=== PATIENT | female | born 1955 | race Caucasian/White ===

== ENCOUNTER 2017-04-03 15:47 | Emergency (ER) | payer OTHER ==
[~2017-04-03] VITALS: Ht 165.1 cm; Wt 61.2 kg
[2017-04-04 17:48] LABS: HCV Non Reactive (NR)
[2018-02-04] MEDS ORDERED: BP MED (19:18)
[2018-02-04] MEDS ORDERED: Mobic15 MG PO (19:19)
[2018-02-04] MEDS ORDERED: ESTRADIOL (19:19)
[2018-02-04] MEDS ORDERED: LOSARTAN POTAS100 MG PO (19:19)
== END 2017-04-03 17:00 | disposition home or self-care (01) ==
LOC: ER 15:47
PROVIDERS: Physician Assistant
DX: S61.230A Puncture wound without foreign body of right index finger without damage to nail, initial encounter (principal); I10 Essential (primary) hypertension; W46.0XXA Contact with hypodermic needle, initial encounter
CPT/HCPCS: 36415; 84460; 86706; 86803; 87389; 99283

== ENCOUNTER 2018-03-07 21:07 | Emergency (ER) | payer OTHER, BC ==
[~2018-03-07] VITALS: Ht 167.6 cm; Wt 61.2 kg
[~2018-03-07 21:07] MED LIST: BP MED; ESTRADIOL; LOSARTAN POTAS100 MG PO; Mobic15 MG PO
== END 2018-03-07 21:56 | disposition home or self-care (01) ==
LOC: ER 21:07
DX: S00.83XA Contusion of other part of head, initial encounter (principal); I10 Essential (primary) hypertension; W22.8XXA Striking against or struck by other objects, initial encounter
CPT/HCPCS: 99283

== ENCOUNTER → 2018-08-10 | Outpatient (CLI) | payer BC ==
[2018-08-10 09:31] LABS: BASOPHILS ABSOLUTE AUTO 0.02 K/mm3 (0.00-0.23); BASOPHILS PERCENT AUTO 1 % (0-2); EOSINOPHILS ABSOLUTE AUTO 0.13 K/mm3 (0.00-0.68); EOSINOPHILS PERCENT AUTO 3 % (0-6); Hematocrit 37.9 % (33.0-51.0); Hemoglobin 12.9 g/dL (11.5-16.0); IMMATURE GRAN ABSOLUTE AUTO 0.01 K/mm3 (0.00-0.10); IMMATURE GRAN PERCENT AUTO 0 % (0-1); LYMPHOCYTES PERCENT AUTO 34 % (21-46); MONOCYTES ABSOLUTE AUTO 0.37 K/mm3 (0.16-1.47); MONOCYTES PERCENT AUTO 10 % (4-13); Mean Corpuscular HGB 30.1 pg (26.0-34.0); Mean Corpuscular Volume 89 fL (80-100); NEUTROPHILS ABSOLUTE AUTO 2.02 K/mm3 (1.96-9.15); NEUTROPHILS PERCENT AUTO 52 % (41-73); Platelet Count 226 K/mm3 (150-400); RDW Coefficient Variation 13.3 % (11.7-14.2); RDW Standard Deviation 43.1 fL (35.1-46.3); Red Blood Cell Count 4.28 M/mm3 (3.80-5.20); White Blood Cell Count 3.85 K/mm3 (4.00-11.30)
[2018-08-10 09:43] LABS: Alanine Aminotransfer (ALT/SGP 33 U/L (12-78); Albumin/Globulin Ratio 1.3 (0.8-1.8); Alk Phos 59 U/L (40-126); Anion Gap 13 mmol/L (6-16); Aspartate Aminotrans (AST/SGOT 20 U/L (12-37); Bilirubin, Total 1.1 mg/dL (0.1-1.0); Blood Urea Nitrogen 14 mg/dL (8-24); Bun/Creatinine Ratio 24.1 (12.0-20.0); CO2, Blood 25 mmol/L (21-32); Calcium, Blood 9.5 mg/dL (8.5-10.1); Chloride, Blood 102 mmol/L (98-108); Creatinine, Blood 0.58 mg/dL (0.40-1.00); Globulin, Blood 3.2 g/dL (2.2-4.0); Glomerular Filtration Rate >60 (60-); Glucose, Blood 103 mg/dL (70-99); Potassium, Blood 3.4 mmol/L (3.5-5.5); Sodium, Blood 140 mmol/L (136-145); Total Protein, Blood 7.2 g/dL (6.4-8.2)
== END | disposition home or self-care (01) ==
LOC: LAB SHORT 09:27 → LAB EV 09:27
PROVIDERS: Family Medicine
DX: K51.90 Ulcerative colitis, unspecified, without complications (principal); R19.7 Diarrhea, unspecified
CPT/HCPCS: 80053; 85025; 86140

== ENCOUNTER → 2018-12-23 | Outpatient (CLI) | payer BC ==
[2018-12-25 15:07] LABS: HPV 16 Negative (Negative); HPV 18 Negative (Negative); HPV OTHER HR TYPES Negative (Negative)
== END | disposition home or self-care (01) ==
LOC: LAB 18:50 → LAB SHORT 18:50
PROVIDERS: Obstetrics & Gynecology Gynecology
DX: Z12.4 Encounter for screening for malignant neoplasm of cervix (principal)
CPT/HCPCS: 87624; G0123

== ENCOUNTER → 2019-02-11 | Outpatient (CLI) | payer BC | LOC: PLD 08:15 → LAB SHORT 08:15 | DX: L72.9 Follicular cyst of the skin and subcutaneous tissue, unspecified (principal) | CPT/HCPCS: 88304 ==

== ENCOUNTER → 2024-03-17 | Outpatient (CLI) | payer OTHER ==
[2024-03-17 11:03] LABS: BASOPHILS ABSOLUTE AUTO 0.09 K/mm3 (0.00-0.23); BASOPHILS PERCENT AUTO 1 % (0-2); EOSINOPHILS ABSOLUTE AUTO 0.32 K/mm3 (0.00-0.68); EOSINOPHILS PERCENT AUTO 3 % (0-6); Hematocrit 27.6 % (33.0-51.0); Hemoglobin 8.6 g/dL (11.5-16.0); IMMATURE GRAN ABSOLUTE AUTO 0.12 K/mm3 (0.00-0.10); IMMATURE GRAN PERCENT AUTO 1 % (0-1); LYMPHOCYTES ABSOLUTE AUTO 0.39 K/mm3 (0.84-5.20); LYMPHOCYTES PERCENT AUTO 4 % (21-46); MONOCYTES ABSOLUTE AUTO 0.57 K/mm3 (0.16-1.47); MONOCYTES PERCENT AUTO 5 % (4-13); Mean Corpuscular HGB 30.7 pg (26.0-34.0); Mean Corpuscular HGB Conc 31.2 g/dL (31.5-36.5); Mean Corpuscular Volume 99 fL (80-100); Mean Platelet Volume 9.9 fL (9.1-12.4); NEUTROPHILS ABSOLUTE AUTO 9.45 K/mm3 (1.96-9.15); NEUTROPHILS PERCENT AUTO 86 % (41-73); Platelet Count 353 K/mm3 (150-400); RDW Coefficient Variation 23.4 % (11.7-14.2); White Blood Cell Count 10.94 K/mm3 (4.00-11.30)
== END ==
LOC: LAB 10:00 → LAB SHORT 10:00
PROVIDERS: Internal Medicine Hematology & Oncology
DX: C20 Malignant neoplasm of rectum (principal)
CPT/HCPCS: 85025

== ENCOUNTER → 2024-04-05 | Outpatient (CLI) | payer OTHER ==
[2024-04-05 10:19] LABS: Hematocrit 25.4 % (33.0-51.0); Hemoglobin 8.1 g/dL (11.5-16.0); Mean Corpuscular HGB 32.1 pg (26.0-34.0); Mean Corpuscular HGB Conc 31.9 g/dL (31.5-36.5); Mean Corpuscular Volume 101 fL (80-100); Mean Platelet Volume 10.3 fL (9.1-12.4); NRBC ABSOLUTE 0.15 K/mm3 (0.00-0.02); NRBC Auto 0.5 /100 WBC (0.0-0.2); Platelet Count 676 K/mm3 (150-400); RDW Standard Deviation 88.4 fL (35.1-46.3); Red Blood Cell Count 2.52 M/mm3 (3.80-5.20); White Blood Cell Count 27.39 K/mm3 (4.00-11.30)
[2024-04-05 10:38] LABS: BASOPHILS PERCENT MAN 0 % (0-2); EOSINOPHILS PERCENT MAN 0 % (0-6); LYMPHOCYTES ABSOLUTE MAN 2.19 K/mm3 (0.84-5.20); LYMPHOCYTES PERCENT MAN 8 % (21-46); METAMYELOCYTE ABSOLUTE MAN 2.46 K/mm3 (0.00-0.00); METAMYELOCYTE PERCENT MAN 9 % (0-0); MONOCYTES ABSOLUTE MAN 3.01 K/mm3 (0.16-1.47); MONOCYTES PERCENT MAN 11 % (4-13); NEUTROPHILS ABSOLUTE MAN 19.72 K/mm3 (1.96-9.15); SEG NEUTROPHILS PERCENT MAN 72 % (41-73); TOTAL CELLS COUNTED 100
== END | disposition home or self-care (01) ==
LOC: LAB SHORT 09:30 → LAB 09:30
PROVIDERS: Internal Medicine Hematology & Oncology
DX: C20 Malignant neoplasm of rectum (principal)
CPT/HCPCS: 85025

== ENCOUNTER 2024-04-26 16:44 | Inpatient (IN) | payer OTHER ==
[~2024-04-26] VITALS: Ht 167.6 cm; Wt 51.5 kg
[2024-04-26 17:36] LABS: Hemoglobin 7.2 g/dL (11.5-16.0); Mean Corpuscular HGB 32.7 pg (26.0-34.0); Mean Corpuscular HGB Conc 31.3 g/dL (31.5-36.5); Mean Corpuscular Volume 105 fL (80-100); Mean Platelet Volume 9.9 fL (9.1-12.4); NRBC ABSOLUTE 0.51 K/mm3 (0.00-0.02); Platelet Count 693 K/mm3 (150-400); RDW Coefficient Variation 23.2 % (11.7-14.2); RDW Standard Deviation 87.1 fL (35.1-46.3); White Blood Cell Count 49.89 K/mm3 (4.00-11.30)
[2024-04-26 17:58] LABS: BAND PERCENT MAN 7 % (0-8); BASOPHILS ABSOLUTE MAN 0.49 K/mm3 (0.00-0.23); BASOPHILS PERCENT MAN 1 % (0-2); EOSINOPHILS PERCENT MAN 0 % (0-6); LYMPHOCYTES ABSOLUTE MAN 1.99 K/mm3 (0.84-5.20); LYMPHOCYTES PERCENT MAN 4 % (21-46); METAMYELOCYTE ABSOLUTE MAN 1.99 K/mm3 (0.00-0.00); METAMYELOCYTE PERCENT MAN 4 % (0-0); MONOCYTES ABSOLUTE MAN 1.99 K/mm3 (0.16-1.47); MONOCYTES PERCENT MAN 4 % (4-13); MYELOCYTE ABSOLUTE MAN 0.49 K/mm3 (0.00-0.00); MYELOCYTE PERCENT MAN 1 % (0-0); SEG NEUTROPHILS PERCENT MAN 79 % (41-73); TOTAL CELLS COUNTED 100
[2024-04-26 18:07] LABS: Albumin, Blood 3.1 g/dL (3.4-5.0); Albumin/Globulin Ratio 0.9 (0.8-1.8); Bilirubin, Total 0.4 mg/dL (0.1-1.0); Calcium, Blood 9.3 mg/dL (8.5-10.1); Creatinine, Blood 0.91 mg/dL (0.40-1.00); Globulin, Blood 3.5 g/dL (2.2-4.0); Potassium, Blood 4.5 mmol/L (3.5-5.5); Total Protein, Blood 6.6 g/dL (6.4-8.2)
[2024-04-26 22:33] LABS: Source, Urine Clean Catch
[2024-04-26 22:39] LABS: Appearance, Urine Clear (Clear); Bilirubin, Urine Neg (Neg); Blood, Urine 5+ (Neg); Color, Urine Yellow (P-Yellow); Glucose Qualitative, Urine Neg (Neg); Ketones, Urine Neg (Neg); Leukocyte Esterase, Urine 1+ (Neg); Nitrite, Urine Neg (Neg); Protein, Urine 2+ (Neg); Specific Gravity, Urine 1.015 (1.003-1.022); Urobilinogen, Urine NORM (Normal)
[2024-04-26] MEDS ORDERED: Ondansetron HCl 2 MG / ML 2ML Vial IV ONE (22:45)
[2024-04-26] MEDS ORDERED: HYDROmorphone HCl/Pf 1MG SYR IV ONE (22:45)
[2024-04-26 22:46] LABS: Bacteria Many /hpf; Squamous Epithelial Cells Few /hpf (Few)
[2024-04-26 22:47] LABS: Amorphous Light (0-Heavy); Calcium Oxalate Crystals Mod /hpf; Renal Epithelial Rare /hpf (0-Rare)
[2024-04-26] MEDS ORDERED: CefTRIAXone Sodium 1,000 MG in NS 100 ML IV ONE (23:35)
[2024-04-27 00:49] LABS: Hematocrit 20.8 % (33.0-51.0); Hemoglobin 6.7 g/dL (11.5-16.0)
[2024-04-27] MEDS ORDERED: HYDROmorphone HCl/Pf 1MG SYR IV PRN (01:30)
[2024-04-27] MEDS ORDERED: Ondansetron HCl 2 MG / ML 2ML Vial IV PRN (01:30)
[2024-04-27] MEDS ORDERED: Bisacodyl 10 MG Supp PR PRN (01:30)
[2024-04-27] MEDS ORDERED: Magnesium Hydroxide Conc 10 ML UDC PO PRN (01:30)
[2024-04-27] MEDS ORDERED: FLU VACC TS2024-25(6MOS UP)/PF 45 MCG/0.5 ML SYRINGE IM ONE (01:30)
[2024-04-27 05:28] LABS: Hematocrit 21.5 % (33.0-51.0); Hemoglobin 6.9 g/dL (11.5-16.0); Mean Corpuscular HGB 32.7 pg (26.0-34.0); Mean Corpuscular HGB Conc 32.1 g/dL (31.5-36.5); Mean Corpuscular Volume 102 fL (80-100); Mean Platelet Volume 9.9 fL (9.1-12.4); NRBC ABSOLUTE 0.51 K/mm3 (0.00-0.02); NRBC Auto 1.2 /100 WBC (0.0-0.2); Platelet Count 646 K/mm3 (150-400); RDW Standard Deviation 85.5 fL (35.1-46.3); Red Blood Cell Count 2.11 M/mm3 (3.80-5.20); White Blood Cell Count 44.07 K/mm3 (4.00-11.30)
[2024-04-27 06:08] LABS: BAND PERCENT MAN 2 % (0-8); BASOPHILS ABSOLUTE MAN 0.88 K/mm3 (0.00-0.23); BASOPHILS PERCENT MAN 2 % (0-2); EOSINOPHILS PERCENT MAN 0 % (0-6); LYMPHOCYTES ABSOLUTE MAN 0.88 K/mm3 (0.84-5.20); LYMPHOCYTES PERCENT MAN 2 % (21-46); MONOCYTES ABSOLUTE MAN 1.32 K/mm3 (0.16-1.47); MONOCYTES PERCENT MAN 3 % (4-13); MYELOCYTE ABSOLUTE MAN 1.32 K/mm3 (0.00-0.00); MYELOCYTE PERCENT MAN 3 % (0-0); NEUTROPHILS ABSOLUTE MAN 39.66 K/mm3 (1.96-9.15); SEG NEUTROPHILS PERCENT MAN 88 % (41-73); TOTAL CELLS COUNTED 100
[2024-04-27 06:13] LABS: Albumin, Blood 2.8 g/dL (3.4-5.0); Albumin/Globulin Ratio 0.8 (0.8-1.8); Bilirubin, Total 0.4 mg/dL (0.1-1.0); Bun/Creatinine Ratio 33.9 (12.0-20.0); Calcium, Blood 8.7 mg/dL (8.5-10.1); Creatinine, Blood 0.8 mg/dL (0.40-1.00); Globulin, Blood 3.3 g/dL (2.2-4.0); Potassium, Blood 4.4 mmol/L (3.5-5.5); Total Protein, Blood 6.1 g/dL (6.4-8.2)
[2024-04-27] MEDS ORDERED: NS 1,000 ML IV ONE (06:17)
[2024-04-27] MEDS ORDERED: Famotidine 20 MG Tab PO SCH (09:00)
[2024-04-27] MEDS ORDERED: Losartan Potassium 50 MG Tab PO SCH (09:00)
[2024-04-27] MEDS ORDERED: AmLODIPine Besylate 5 MG Tab PO SCH (09:00)
[2024-04-27] MEDS ORDERED: OxyCODONE HCL 5 MG TAB PO PRN (09:35)
[2024-04-27] MEDS ORDERED: Promethazine HCl 25 MG Tab PO PRN (09:40)
[2024-04-27 14:40] VITALS: BP 145/96
[2024-04-27] MEDS ORDERED: Vitamin D1000 UNI1 PO (16:05)
[2024-04-27] MEDS ORDERED: OXYC10ER PO (16:06)
[2024-04-27 17:56] LABS: Hematocrit 27.1 % (33.0-51.0); Hemoglobin 8.8 g/dL (11.5-16.0)
--- NOTE | 2024-04-27 18:05 | NUR ---
1432- PT TO MEDICAL FLOOR IN STABLE CONDITION.
--- NOTE | 2024-04-27 18:05 | NUR ---
SUMMARY- PT AAOX4. SBA IN ROOM. PT SHOWERED TONIGHT. NSR ON TELE IN THE 90'S. PT HAS PAIN IN HER "RECTUM" 5/10 PAIN LEVEL. LEVEL WENT TO 3/10 AFTER 10MG OXY GIVEN-TOLERABLE PAIN LEVEL PER PT. PT ON RA. PT IS WEARING A PAD FOR THE BLEEDING FROM HER ANUS. COLOSTOMY BAG HAS SOFT STOOL PRESENT. PT STATES SHE WOULD LIKE TO STOP CHEMO AND FOCUS ON HAVING "QUALITY" TIME WITH WHAT SHE HAS LEFT. PT WISHES TO SPEAK TO PALLIATIVE CARE TEAM.
[2024-04-27] MEDS ORDERED: NS 250 ML IV PRN (20:30)
[2024-04-27 20:32] VITALS: BP 147/83
[2024-04-27] MEDS ORDERED: CefTRIAXone Sodium 1,000 MG in NS 100 ML IV SCH (21:00)
[2024-04-28] VITALS (11 sets, daily range): BP systolic 106–134; BP diastolic 66–87
--- NOTE | 2024-04-28 04:50 | NUR ---
SHIFT SUMMARY; PATIENT WAS ABLE TO SLEEP IN LONG INTERVALS. GAVE PAIN MED ONCE. MINIMAL OUTPUT IN COLOSTOMY, SOFT BROWN STOOL. RECTAL/VAG BLEEDING SMALL AMOUNTS. TELE SR-ST 103. IV ABX INFUSED.
[2024-04-28 05:13] LABS: BASOPHILS ABSOLUTE AUTO 0.39 K/mm3 (0.00-0.23); BASOPHILS PERCENT AUTO 1 % (0-2); EOSINOPHILS ABSOLUTE AUTO 0.03 K/mm3 (0.00-0.68); EOSINOPHILS PERCENT AUTO 0 % (0-6); Hematocrit 21.9 % (33.0-51.0); Hemoglobin 7.1 g/dL (11.5-16.0); IMMATURE GRAN PERCENT AUTO 6 % (0-1); LYMPHOCYTES ABSOLUTE AUTO 2.02 K/mm3 (0.84-5.20); LYMPHOCYTES PERCENT AUTO 7 % (21-46); MONOCYTES ABSOLUTE AUTO 3.74 K/mm3 (0.16-1.47); MONOCYTES PERCENT AUTO 12 % (4-13); Mean Corpuscular HGB 31.8 pg (26.0-34.0); Mean Corpuscular HGB Conc 32.4 g/dL (31.5-36.5); Mean Corpuscular Volume 98 fL (80-100); Mean Platelet Volume 9.9 fL (9.1-12.4); NEUTROPHILS ABSOLUTE AUTO 23.04 K/mm3 (1.96-9.15); NEUTROPHILS PERCENT AUTO 74 % (41-73); NRBC ABSOLUTE 0.41 K/mm3 (0.00-0.02); NRBC Auto 1.3 /100 WBC (0.0-0.2); Platelet Count 505 K/mm3 (150-400); RDW Coefficient Variation 22.1 % (11.7-14.2); RDW Standard Deviation 77.6 fL (35.1-46.3); Red Blood Cell Count 2.23 M/mm3 (3.80-5.20); White Blood Cell Count 31.12 K/mm3 (4.00-11.30)
[2024-04-28 06:02] LABS: BASOPHILS ABSOLUTE MAN 0.31 K/mm3 (0.00-0.23); BASOPHILS PERCENT MAN 1 % (0-2); EOSINOPHILS PERCENT MAN 0 % (0-6); LYMPHOCYTES ABSOLUTE MAN 1.55 K/mm3 (0.84-5.20); LYMPHOCYTES PERCENT MAN 5 % (21-46); METAMYELOCYTE ABSOLUTE MAN 1.86 K/mm3 (0.00-0.00); METAMYELOCYTE PERCENT MAN 6 % (0-0); MONOCYTES ABSOLUTE MAN 2.48 K/mm3 (0.16-1.47); MONOCYTES PERCENT MAN 8 % (4-13); NEUTROPHILS ABSOLUTE MAN 24.89 K/mm3 (1.96-9.15); SEG NEUTROPHILS PERCENT MAN 80 % (41-73); TOTAL CELLS COUNTED 100
--- NOTE | 2024-04-28 10:39 | NUR ---
1037- MD PHILIPPE GAVE TELEPHONE VERBAL TO DC TELEMETRY.
[2024-04-28] MEDS ORDERED: NS 500 ML IV SCH (11:40)
--- NOTE | 2024-04-28 15:40 | NUR ---
MET WITH PATIENT AND HER HANH. DISCUSSED GOALS OF CARE. THEY ARE WANTING TO MEET WITH DR. DAXA ERNST TO SEE IF RADAITION THERAPY CAN SLOW OR STOP HER BLEEDING. THEY ARE ALSO INTERESTED IN PURSUING NATURAL OPTIONS FOR TREATMENTS. THEY UNDERSTAND THAT SHE IS AT THE END OF LIFE, BUT ARE LOOKING TO FIND WAYS TO PROVIDE MORE QUALITY AND ADDRESS THE SYMPTOMS (BLOOD LOSS) THAT ARE TAKING AWAY FROM HER QUALITY. THEY HAVE A CONSULT FOR HOSPICE. RECOMENDED THAT THEY SPEAK WITH HOSPICE AND EXPRESS WHAT APTS THEY ARE WANTING TO CONTINUE. WE DISCUSSED WHAT HOSPICE WOULD PROVIDE. WE DISCUSSED CODE STATUS. REVIEWED A NEW POLST FORM. EXPRESSED THAT H[facility] WOULD NOT WANT CPR. I LET HIM KNOW SHE WAS FULL CODE AT THIS TIME. CUT MY VISIT SHORT A VISITOR CAME IN. THEY WILL DISCUSS AND UPDATE ON CODE STATUS.
[2024-04-28 17:58] LABS: Hematocrit 26.6 % (33.0-51.0); Hemoglobin 8.6 g/dL (11.5-16.0)
--- NOTE | 2024-04-28 18:18 | NUR ---
SUMMARY- PT AAOX4. ON RA. SBA. ANUS PAIN WELL CONTROLLED WITH EMAR PAIN MEDS (OXY). PT HAS MIN TO MOD APPETITE. NO ACUTE EVENTS THIS SHIFT. PT EXPRESSES SHE WOULD LIKE TO SEEK TREATMENT TO STOP HER BLEEDING AND TREAT HER BLEEDING PRN.
[2024-04-29 02:58] VITALS: BP 125/85
--- NOTE | 2024-04-29 05:40 | NUR ---
SHIFT SUMMARY NOC PT A/O X 4. PLEASANT AND COOPERATIVE WITH CARE. VSS. PT STILL HAVING BRIGHT RED RECTAL/VAGINAL BLEEDING, AND HAS PADS IN PLACE IN BRIEF. PT PAIN BEING MANAGED PER EMAR. PT INDEPENDENTLY MANAGING OSTOMY. PT RECEIVED 1 UNIT IRRADIATED PRBC YESTERDAY AND HGB 8.6, AWAITING AM LABS. PT CURRENTLY RESTING WITH BED IN LOWEST POSITION, AND CALL LIGHT WITHIN REACH.
[2024-04-29 06:33] LABS: BASOPHILS ABSOLUTE AUTO 0.38 K/mm3 (0.00-0.23); BASOPHILS PERCENT AUTO 2 % (0-2); EOSINOPHILS ABSOLUTE AUTO 0.02 K/mm3 (0.00-0.68); EOSINOPHILS PERCENT AUTO 0 % (0-6); Hematocrit 26.5 % (33.0-51.0); Hemoglobin 8.8 g/dL (11.5-16.0); IMMATURE GRAN ABSOLUTE AUTO 1.03 K/mm3 (0.00-0.10); IMMATURE GRAN PERCENT AUTO 5 % (0-1); LYMPHOCYTES PERCENT AUTO 8 % (21-46); MONOCYTES ABSOLUTE AUTO 2.94 K/mm3 (0.16-1.47); MONOCYTES PERCENT AUTO 13 % (4-13); Mean Corpuscular HGB 32.4 pg (26.0-34.0); Mean Corpuscular HGB Conc 33.2 g/dL (31.5-36.5); Mean Corpuscular Volume 97 fL (80-100); Mean Platelet Volume 9.5 fL (9.1-12.4); NEUTROPHILS ABSOLUTE AUTO 16.47 K/mm3 (1.96-9.15); NEUTROPHILS PERCENT AUTO 72 % (41-73); NRBC ABSOLUTE 0.12 K/mm3 (0.00-0.02); NRBC Auto 0.5 /100 WBC (0.0-0.2); Platelet Count 406 K/mm3 (150-400); RDW Coefficient Variation 21.4 % (11.7-14.2); RDW Standard Deviation 74.8 fL (35.1-46.3); Red Blood Cell Count 2.72 M/mm3 (3.80-5.20); White Blood Cell Count 22.74 K/mm3 (4.00-11.30)
[2024-04-29 07:29] VITALS: BP 122/82
[2024-04-29] MEDS ORDERED: AMLO5 PO (08:59)
[2024-04-29] MEDS ORDERED: LEVFLO500 PO (09:00)
[2024-04-29] MEDS ORDERED: PANT40 PO (09:00)
--- NOTE | 2024-04-29 11:45 | NUR ---
PT WAS DISCHARGED GOME WITH INSTRUCTIONS. ALL PIVS REMOVED AND D/C PACKET IN HAND. PT HAS NO QUETIONS OR CONCERNS.
--- NOTE | 2024-04-29 14:07 | NUR ---
SPOKE TO ANU FROM [facility] TO DISCUSS PATIENTS GOALS AND PLANS FOR TREATMENT OUTPATIENT. HUMBLE WOULD LIKE TO FOLLOW UP WITH ONCOLOGY TO SEE IF RADIATION CAN HELP OR STOP HER BLEEDING. SHE HAS AN APT ON 05/04/24. ANU UPDATED ME THAT SHE CONTACTED [facility] AND UPDATED THEM ON PT CONDITION AND REQUESTED FOR APT TO BE MOVED UP.
== END 2024-04-29 11:28 | disposition home or self-care (01) | DRG 844 ==
LOC: ER 16:44 → ERHOLD 16:45 → MEDS 04-27 14:32
PROVIDERS: Student in an Organized Health Care Education/Training Program; ADMIT Family Medicine
PROC: 30233N1 Transfusion of Nonautologous Red Blood Cells into Peripheral Vein, Percutaneous Approach (ICD-10-PCS; principal; 2024-04-26)
DX: C7B.8 Other secondary neuroendocrine tumors (principal); K62.5 Hemorrhage of anus and rectum; N39.0 Urinary tract infection, site not specified; R64 Cachexia; Z68.1 Body mass index [BMI] 19.9 or less, adult; C7A.8 Other malignant neuroendocrine tumors; R54 Age-related physical debility; D50.0 Iron deficiency anemia secondary to blood loss (chronic); N93.9 Abnormal uterine and vaginal bleeding, unspecified; Z88.8 Allergy status to other drugs, medicaments and biological substances; Z90.710 Acquired absence of both cervix and uterus; Z93.3 Colostomy status
CPT/HCPCS: 36415; 36430; 74177; 80053; 81001; 83605; 85014; 85018; 85025; 86850; 86900; 86901; 86920; 86923; 87086; 93005; 93010; 96365-59; 96366; 96375; 96376; 99285-25; A9270; G0378; J0696; J1171; J2405; J7030; P9040; Q9967

== ENCOUNTER → 2024-05-13 | Outpatient (CLI) | payer OTHER ==
[~2024-05-13] MED LIST changes: +AMLO5 PO; +LEVFLO500 PO; +OXYC10ER PO; +PANT40 PO; +Vitamin D1000 UNI1 PO
== END ==
LOC: LAB SHORT 16:11 → LAB 16:11
DX: N39.0 Urinary tract infection, site not specified (principal)
CPT/HCPCS: 87086

== ENCOUNTER → 2024-05-17 | Outpatient (CLI) | payer OTHER | LOC: LAB 12:31 → LAB SHORT 12:31 | DX: N39.0 Urinary tract infection, site not specified (principal); R31.9 Hematuria, unspecified | CPT/HCPCS: 87086 ==